=== PATIENT | female | born 1965 | race Caucasian/White ===

== ENCOUNTER → 2021-01-06 16:51 | Outpatient (CLI) | payer OTHER, SELFPAY ==
--- NOTE | 2021-01-06 16:56 | DI.MRI.S_ITS ---
PROCEDURE: MR KNEE RT WO CON INDICATIONS: Unilateral primary osteoarthritis, right knee TECHNIQUE: Noncontrast sagittal PD fast spin echo and T2 fast spin echo with fat saturation, sagittal 3-D FLASH with fat saturation; coronal T1 spin echo and PD fast spin echo with fat saturation, and axial PD fast spin echo with fat saturation through the knee. COMPARISON: [facility] Vernon Pooler, CR, XR KNEE 4+ VIEWS RIGHT, 12/20/2020, 9:18. FINDINGS: Image quality: Excellent. Menisci: Medial extrusion of the medial meniscus is present. Radial tearing of the posterior horn medial meniscus at the meniscal root ligament insertion site. There is linear horizontal and amorphous high signal intensity within the medial meniscal body and posterior horn, demonstrating superior and inferior articular surface extension, indicating complex tearing. Lateral meniscus is intact. Cruciate ligaments: The anterior and posterior cruciate ligaments appear intact. Medial structures: The medial collateral ligament appears intact. Visualized portions of the pes anserinus tendons appear normal. No abnormal bursal fluid. Lateral structures: The lateral collateral ligament demonstrates mild T2 signal elevation femoral origin. The long and short heads of the biceps femoris tendon appear intact. The popliteus tendon appears normal. Iliotibial band appears normal. Anterior structures: The quadriceps and patellar tendons appear intact. Mild T2 signal elevation within the quadriceps and patellar tendons at the patellar insertion site. Patellar alignment is normal. No femoral trochlear dysplasia or ventral trochlear prominence. No edema in the infrapatellar fat pad. Bones and cartilage: No bone marrow contusions or fractures. There is mild subchondral degenerative marrow edema within the anterior, mid, and posterior weight-bearing aspects of the medial femoral condyle. Mild ill-defined T2 signal elevation within the lateral patellar apex. Mild degenerative T2 signal elevation within the medial and lateral femoral trochlea. Moderate tricompartmental periarticular osteophyte formation. Severe articular cartilage loss diffusely overlies the weight-bearing aspects of the medial femoral condyle and medial tibial plateau. Mild articular cartilage loss overlies the weight-bearing aspects of the lateral femoral condyle and lateral tibial plateau. Moderate articular cartilage loss overlies the medial and lateral patellar facets. Joint space: There is a small knee joint effusion and a moderate Dumont's cyst. There are a few intra-articular loose bodies, largest of which is in the central anterior aspect of the knee joint measuring 10 mm, which demonstrates low T2 signal intensity, suggestive of a meniscal fragment. Normal appearing synovial plicae are incidentally noted. IMPRESSION: 1. Tricompartmental osteoarthritis with associated articular cartilage loss. 2. Complex tearing of the medial meniscus. 3. Knee joint effusion, Dumont's cyst, and intra-articular loose bodies. Possible meniscal fragment within the anterior aspect of the knee joint. 4. Quadriceps and patellar tendinopathy. 5. Low-grade partial thickness lateral collateral ligament tear. Dictated by: Selin Drake M.D. on 01/07/2021 at 8:36 Approved by: Selin Drake M.D. on 01/07/2021 at 8:39
== END ==
PROVIDERS: Referring Provider Orthopaedic Surgery; Visit Provider Orthopaedic Surgery
DX: M17.11 Unilateral primary osteoarthritis, right knee (principal); S83.231A Complex tear of medial meniscus, current injury, right knee, initial encounter; S83.421A Sprain of lateral collateral ligament of right knee, initial encounter; M25.461 Effusion, right knee; M71.21 Synovial cyst of popliteal space [Baker], right knee
CPT/HCPCS: 73721

== ENCOUNTER → 2021-02-03 13:08 | Outpatient (CLI) | payer OTHER, SELFPAY ==
[2021-02-03 15:07] LABS: COVID19 -Nasal RAPID Negative (Negative)
== END ==
PROVIDERS: PCP Orthopaedic Surgery; Visit Provider Student in an Organized Health Care Education/Training Program
DX: Z20.822 Contact with and (suspected) exposure to COVID-19 (principal)
CPT/HCPCS: 87635

== ENCOUNTER 2021-02-04 06:27 | Day surgery (SDC) | payer OTHER, SELFPAY ==
[2021-02-04] VITALS (16 sets, daily range): BP systolic 120–171; BP diastolic 59–95; PULSE 63–98; RESP 10–20; TEMP 35.7–37.1; O2SAT 95–100; BMI 36.9
[2021-02-04] MEDS: CELECOXIB 200 MG CAPSULE PO (07:00)
[2021-02-04] MEDS: ACETAMINOPHEN 325 MG TABLET 975 MG PO (07:00)
[2021-02-04] MEDS: VANCOMYCIN 1,000 MG/200 ML PIGGYBACK 200 MG IV (07:29)
[2021-02-04] MEDS: LACTATED RINGERS 1,000 ML 42 ML IV ×2 (07:31→09:26)
--- NOTE | 2021-02-04 07:42 | PM.PREOP ---
Pre-operative Note COVID-19 COVID-19 status: Negative Interval Note History & Physical reviewed/Exam performed by Physician: Yes Changes to H&P: No
--- NOTE | 2021-02-04 07:43 | PM.OP.1 ---
Operative Date/Time/Diagnoses Date of procedure: 02/04/21 Time of procedure: 07:43 Pre-op diagnosis: right knee oa Post-op diagnosis: same Procedure & Clinicians Procedure: Right total knee arthroplasty Same procedure as scheduled: Yes Indications: The patient has had progressively worsening right knee pain with radiographic changes consistent with arthritis. Non-operative management has failed and the patient has requested total knee replacement. The risks, benefits and alternatives to surgery were discussed with the patient prior to proceeding. Risks discussed included, but were not limited to, failure to relieve pain, stiffness, infection, nerve damage, deep venous thrombosis, pulmonary embolism, stroke, coma, heart attack, permanent paralysis and , as well as the potential need for eventual revision of the prosthetic. Surgeon: Sunshine Dykes Maintainer Operator: Donnell Corado Anesthesia Type: General and Spinal Operative Notes Findings: Severe right knee osteoarthritis, good stability Closure Type: primary Specimen(s): none sent Prosthetic devices, grafts, tissues, transplants, or devices: Dykes and Nephew Roshan BCS 2 size 8 femur, size 6 tibia, 38 mm patella, +9 poly Applied: drain(s) Estimated Blood Loss (mL): 250 Blood products transfused: none Tourniquet time (min): 83 Procedure in detail: The patient was seen in the pre-operative area, where the patient identified the right knee as the operative site and this was marked with my initials. The patient received pre-operative antibiotics, and was taken to the operating room and placed on the operative table in the supine position. After satisfactory anesthesia, a registered phlebotomist part time out was performed. The right leg was encircled with a tourniquet about the proximal thigh, and the leg was prepared from the toes to the tourniquet with ChloroPrep in the usual fashion and draped through sterile drapes. The leg was elevated and exsanguinated with Eschmark bandage and the tourniquet inflated to [250] mmHg pressure. The knee was approached through an approximately 18 cm incision centered over the patella and carried into the knee through a medial parapatellar arthrotomy. A portion of the medial and lateral meniscus was resected. Soft tissue was carefully mobilized around the patella the patella was measured with a caliper. Bone was resected from the patella and the patellar height was reconstituted with up an appropriate sized patellar component. A cover was then placed on the patella. A small amount of additional medial and lateral meniscus was resected. The visionare guide fit well to the distal femur. It looked like an appropriate distal femoral cut and the cut was made without difficulty. The rotation was assessed and the appropriate size femoral guide was placed on the distal femur and finishing cuts were made. There was no evidence of notching. The anterior, posterior and chamfer cuts were then made. The posterior osteophytes and soft tissues were then removed. The posterior capsule was injected with part of a mixture of 60 ml 0.25% Marcaine mixed with 20 ml Exparel for post operative pain control. The remainder of this mixture was injected into the capsule and subcutaneous tissues during cement curing. The tibia was prepared and the visionaire guide fit well to the distal tibia. The rotation was assessed. The patient was placed in extension residual medial and lateral meniscus as well as any residual bone was carefully resected. [No] additional tibia was resected. Hemostasis was achieved especially posteriorly. Additional local was injected into the posterior capsule. The extension gap was assessed and additional releases for gap balancing were performed as necessary. It was checked with the gap corn detasseler. The femoral component was trial was placed and the notch was finished. Trial tibial and femoral components were then placed and the knee placed through a range of motion. Range of motion was [0-130], with good stability throughout the range. The trials were then removed, and the tibia was finished. The bone was prepared with pulsatile lavage, and dried with a sponge. Cement was applied and the final prosthetics placed. Excess cement was removed during and after cement curing. A brief Betadine soak was performed. After confirming there was no extruded cement posteriorly, the final tibial insert was placed. The knee was copiously irrigated and the tourniquet deflated. Hemostasis was obtained with the [Aquamantys system]. A drain was placed and brought out superolaterally. The capsule was closed with interrupted # 1 black braided suture. The subcutaneous layer was closed with barbed sutures, and the skin with a running 3-0 V-Lock suture and Surgical glue. An Aquacel Ag dressing was applied and the patient was taken to recovery having tolerated the procedure well. Post-operative Condition: stable Disposition: Acute Care Plan for aftercare: The patient will be maintained on a standard total knee replacement protocol with weight bearing as tolerated. The patient will receive Aspirin and sequential compression devices for DVT prophylaxis. The patient will be discharged home when safe for the home environment.
[2021-02-04] MEDS: TRANEXAMIC ACID 1,000 MG VIAL 1000 MG INJ ×2 (08:15→09:49)
--- NOTE | 2021-02-04 08:30 | SUR.OPER ---
Supine on padded OR bed. Pillow under head, arms secured on padded armboards <90 degree abduction. Safety belt across torso. Non-operative leg secured with tape over blanket over lower leg. Operative leg secured in DeMayo/Ubaldo positioner. Foam padded brace at thigh of operative leg.
[2021-02-04] MEDS: CEFAZOLIN 1 GM VIAL 2 GM IV (08:35)
[2021-02-04] MEDS: BUPIVACAINE 0.25% W/ EPI 30 ML VIAL 60 ML INJ (08:36)
[2021-02-04] MEDS: BUPIVACAINE LIPOSOME 266 MG/20 ML VIAL INJ (08:36)
[2021-02-04] MEDS: SODIUM CHLORIDE IRRIG SOLUTION 250 ML, POVIDONE-IODINE SPONGE STICKS 1 APPLIC IRR (08:36)
--- NOTE | 2021-02-04 09:30 | PC.NURSE ---
Day shift: Pt not on AC unit at this time (0930).
[2021-02-04] MEDS: fentaNYL 100 MCG/2 ML INJ IV (10:55)
[2021-02-04] MEDS: HYDROMORPHONE 2 MG INJ IV (10:59)
--- NOTE | 2021-02-04 11:30 | DI.RAD.S_ITS ---
PROCEDURE: XR KNEE RT 1TO2V INDICATIONS: RIGHT TOTAL KNEE TECHNIQUE: 3 views of the knee were acquired. COMPARISON: None. FINDINGS: Bones: No fractures or dislocations. No suspicious bony lesions. Total knee prosthesis in place. Intra-articular drain noted. Soft tissues: No joint effusion. No suspicious soft tissue calcifications. IMPRESSION: Total right knee arthroplasty and intra-articular drain in good position. Dictated by: Jose Luis Young M.D. on 02/04/2021 at 12:59 Approved by: Jose Luis Young M.D. on 02/04/2021 at 13:00
--- NOTE | 2021-02-04 11:35 | PC.NURSE ---
Day shift: Pt on AC unit from PACU at approx 1135. Laying on her left side to relieve some of her chronic back pain. She is A&Ox4. SCD's in place. Reports pain in rt knee feels burning and is 6/10. RA 99%. CMS ok and PPP. LAURIE wrap is CDI. Matheus-vac patent and clamped. De-clamp at 1215 per CREDIT REVIEW ANALYST. Lung clear and HR regular. States that she is not hungry right now. BT's hypo. Agrees to not get OOB w/o help from staff. Reports having a BM 2 days ago and this is normal for her she said. Oreinted to room and call light. Call light in reach. Will continue w/ post=op plan of care.
[2021-02-04] MEDS: LACTATED RINGERS 1,000 ML 100 ML IV ×2 (11:56→22:08)
[2021-02-04] MEDS: IBUPROFEN 400 MG TABLET PO ×3 (12:04→20:37)
[2021-02-04] MEDS: HYDROMORPHONE 2 MG TABLET PO ×3 (12:04→17:27)
--- NOTE | 2021-02-04 12:48 | PC.NURSE ---
Day shift: Matheus-Vac unclamped at approx 1240 and serous drainage present in line and flowed into the receptacle.
[2021-02-04] MEDS: ACETAMINOPHEN 325 MG TABLET 650 MG PO ×2 (14:09→20:38)
--- NOTE | 2021-02-04 15:55 | PT.IIE ---
Current Diagnoses Unilateral primary osteoarthritis, right knee (02/04/21) Surgery Performed Operation Date: 02/04/21 07:45 Actual Procedures p Total Knee Arthroplasty(Right) - Sunshine Dykes MD Physical Therapy Inpatient Evaluation/Re-Eval M1 PT/OT-IP Prior Functional Status Start: 02/04/21 17:33 Freq: NEEDED Status: Active Protocol: Document 02/04/21 15:55 AB (Rec: 02/04/21 17:46 AB [id number]) Medical Review Prior Functional Status Medical History Reviewed Yes Communication able to make needs known Mobility and Gait pt stated that she is modified independent with all mobilities and ambulation mostly without AD but uses bilateral crutches on/off depending on steadiness. stated that her knees tend to give out on her Social History Household Members children Living Arrangements House Number of Floors (Floors) Two Floors Number of Stairs To Enter/Railing? 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 [employer] M2 PT-IP Current Condition Start: 02/04/21 17:33 Freq: NEEDED Status: Active Protocol: Document 02/04/21 15:55 AB (Rec: 02/04/21 17:46 AB [id number]) Physical Therapy Current Condition Current Condition Evaluation Date 02/04/21 Treatment Diagnosis s/p R TKA; difficulty in walking Onset Date 02/04/21 Weight Bearing Status Weight Bearing Status Weight Bear as Tolerated Allowed Weight Bearing Amount (enter % RLE WBAT or #) (%) M3 PT-IP Subjective Start: 02/04/21 17:33 Freq: NEEDED Status: Active Protocol: Document 02/04/21 15:55 AB (Rec: 02/04/21 17:46 AB [id number]) Subjective Physical Therapy Visit Type Type Initial Evaluation Visit Start Time 15:55 Visit Stop Time 16:30 Total Visit Minutes 35 Number of WORD PROCESSING SUPERVISOR Visits 0 Physical Therapy Visit Comments Patient Comments agreeable to do PT Therapy Pain Assessment Pain When Pain Assessed At Rest Pain Present Pain Present Pain Reported Location Right knee Intensity 7 Scale Used Numeric (0 - 10) Pain Management Techniques Apply Cold,Distraction, Elevation,Modification of Treatment,Re-positioning, Timing of Activity with Medications M4 PT-IP Mobility and Gait Start: 02/04/21 17:33 Freq: NEEDED Status: Active Protocol: Document 02/04/21 15:55 AB (Rec: 02/04/21 17:46 AB [id number]) PT-Bed Mobility Assessment Supine to Sit Supine to Sit Standby Assistance Sit to Supine Sit to Supine Standby Assistance PT-Transfer Assessment Sit to and From Stand Sit to and from Stand Contact Guard Assistance, Minimal Assistance,1 Person Assistance,Use of Upper Extremities Equipment Transfer Assistive Device Gait Belt,Axillary Crutches Orthotic/Prosthetic Devices or Brace: No Transfers Transfer Destination Bed,Chair Transfer Technique ambulated using crutches Transfer Ability Level of Assist Contact Guard Assistance,1 Person Assistance,Use of Upper Extremities Comments Mobility Comments completed supine to sit SBa. completed sit to stand from bed CGA and ambulated in room using crutches CGA 30 ft. pt sat on chair. adjusted hand laundry attendant on crutches. completed sit to stand from chair and required min A. pt required 2 attempts before being able to get up from chair. educated pt on techniques to get up using crutches. pt ambulated in room again ~ 20 ft. c/o increase pain on R knee and requeste to go back to bed. completed sit to supine SBA. positioned in bed. ice pack provided. call light and table placed within reach. Gait Assessment Gait Gait Assistance Required: Contact Guard Assist Distance (Feet) 30 Able to Maintain Weight Bearing Status Yes During Gait Assistive Devices Assistive Device Gait Belt,Axillary Crutches Orthotic/Prosthetic Devices or Brace: No Gait Deviations General Gait Pattern Antalgic,Decreased Stride Length,Decreased Feet Clearance Factors Limiting Gait Function Factors Limiting Gait Function Decreased Activity Tolerance, Decreased Strength,Limited Range of Motion,Pain,Poor Balance,Poor Safety Awareness Comments Gait Comments pls refer to mobility section for details PT-Balance Assessment Sitting Balance and Reactions Static Sitting Balance Ability Good Dynamic Sitting Balance Ability Good Standing Balance and Reactions Static Standing Balance Ability Fair Dynamic Standing Balance Ability Fair Device Used crutches M5 PT-IP Objective Assessments Start: 02/04/21 17:33 Freq: NEEDED Status: Active Protocol: Document 02/04/21 15:55 AB (Rec: 02/04/21 17:46 [id number]) Orientation Orientation/Cognition Level of Alertness Alert Orientation Name,Age,Birthday,Month,Date, Year,Day of Week,Place, Situation Language Function Ability No Deficits Noted Safety Awareness Understands Safety Issues Memory Description No Deficits Noted Gross Range of Motion Lower Extremity ROM Impairments R knee flexion: ~ 100 deg R knee extension: ~ 10 deg lacking to 0 Strength Lower Extremity Strength Assessment Right Impaired Hip 4+/5 Knee 3+/5 Coordination Assessment Gross Coordination Gross Coordination WNL Sensation Assessment Sensation Gross Sensation WNL Muscle Tone Muscle Tone WNL Yes M6 PT-IP Treatment Start: 02/04/21 17:33 Freq: NEEDED Status: Active Protocol: Document 02/04/21 15:55 AB (Rec: 02/04/21 17:46 [id number]) Physical Therapy Treatment Education Education Provided Precautions,Weight Bearing Status,Post-Op Packet,Safety M7 PT-IP Assessment and Plan Start: 02/04/21 17:33 Freq: NEEDED Status: Active Protocol: Document 02/04/21 15:55 AB (Rec: 02/04/21 17:46 [id number]) PT Summary Assessment and Plan Potential Rehabilitation Potential Good Status of Condition at Evaluation Stable Summary Impairments Pain,ROM,Strength,Balance,Bed Mobility,Transfers,Gait, Activity Tolerance Assessment Summary pt requiring CGA to min A with mobility using bilateral axillary crutches and plans to go home with family to assist her. will conduct caregiver training when appropriate as well as stair climbing training. pt s/o R TKA and POD 0 and will continue to assess progress and determine safe d/c plan. Goals Bed Mobility Goal Independent Transfer Goal Independent,Crutches Gait Goal Independent,Crutches Gait Distance 200 Other Goals up/down 3 steps using crutches SBA Days to Meet Goals 5 Frequency of Treatment Frequency Of Treatment Twice a Day Treatment Plan Physical Therapy Treatment Plan Bed Mobility Training,Transfer Training,Gait Training, Therapeutic Exercise,Balance Retraining,Post Op Education, Discharge Planning,Hot or Cold Pack,Neuromuscular Re-ed, Coordination Retraining,Manual Therapy Precautions Other Precautions RLE WBAT Recommendations To Nursing Amount of Assist Needed 1 Person Assist Discharge Recommendations PT Discharge Recommendations Home with Assistance, Outpatient PT Transportation Needs at Discharge Private Vehicle
[2021-02-04] MEDS: CEFAZOLIN VIAL 3 GM in SODIUM CHLORIDE 0.9% 100 ML 200 ML IV (17:03)
[2021-02-04] MEDS: HYDROMORPHONE 4 MG TABLET PO (20:38)
[2021-02-04] MEDS: DOCUSATE 100 MG CAPSULE PO (20:39)
[2021-02-04] MEDS: ASPIRIN EC 81 MG TABLET PO (20:39)
[2021-02-05] VITALS: BP 124/70; PULSE 64; RESP 16; TEMP 36; O2SAT 96
[2021-02-05] MEDS: CEFAZOLIN VIAL 3 GM in SODIUM CHLORIDE 0.9% 100 ML 200 ML IV (01:02)
[2021-02-05] MEDS: IBUPROFEN 400 MG TABLET PO ×3 (01:02→09:20)
[2021-02-05 05:15] VITALS: BP 140/78; PULSE 68; RESP 16; TEMP 36.5; O2SAT 97
[2021-02-05 06:00] LABS: Hematocrit 36.2 % (36-46); Hemoglobin 11.7 g/dL (12.0-16.0)
[2021-02-05] MEDS: LEVOTHYROXINE 100 MCG TABLET PO (06:07)
[2021-02-05] MEDS: LEVOTHYROXINE 75 MCG TABLET PO (06:07)
[2021-02-05] MEDS: HYDROMORPHONE 2 MG TABLET PO (06:25)
[2021-02-05 07:34] VITALS: BP 139/67; PULSE 68; RESP 15; TEMP 36.1; O2SAT 99
--- NOTE | 2021-02-05 09:17 | PT.IPTN ---
Current Diagnoses Unilateral primary osteoarthritis, right knee (02/04/21) Surgery Performed Operation Date: 02/04/21 07:45 Actual Procedures p Total Knee Arthroplasty(Right) - Sunshine Dykes MD Physical Therapy Treatment Note M2 PT-IP Current Condition Start: 02/04/21 17:33 Freq: NEEDED Status: Discharge Protocol: Document 02/04/21 15:55 AB (Rec: 02/04/21 17:46 AB [id number]) Physical Therapy Current Condition Current Condition Evaluation Date 02/04/21 Treatment Diagnosis s/p R TKA; difficulty in walking Onset Date 02/04/21 Weight Bearing Status Weight Bearing Status Weight Bear as Tolerated Allowed Weight Bearing Amount (enter % RLE WBAT or #) (%) M3 PT-IP Subjective Start: 02/04/21 17:33 Freq: NEEDED Status: Discharge Protocol: Document 02/05/21 09:06 SP (Rec: 02/05/21 13:37 SP [id number]) Subjective Physical Therapy Visit Type Type Treatment Note Visit Start Time 09:06 Visit Stop Time 09:17 Total Visit Minutes 11 Notes Daughter in room, assisted with sBA-CGA as needed during mobility throughout tx. Number of MEDICAL ASSISTANT DERMATOLOGY Visits 1 Physical Therapy Visit Comments Patient Comments agreeable to do PT Therapy Pain Assessment Pain When Pain Assessed At Rest Pain Present Pain Present Pain Reported Location Right knee Intensity 5 Scale Used Numeric (0 - 10) Description With Movement Pain Management Techniques Distraction,Re-positioning, Timing of Activity with Medications M4 PT-IP Mobility and Gait Start: 02/04/21 17:33 Freq: NEEDED Status: Discharge Protocol: Document 02/05/21 09:06 SP (Rec: 02/05/21 13:37 SP [id number]) PT-Bed Mobility Assessment Supine to Sit Supine to Sit Independent Sit to Supine Sit to Supine Independent PT-Transfer Assessment Sit to and From Stand Sit to and from Stand Contact Guard Assistance, Minimal Assistance,1 Person Assistance,Use of Upper Extremities Equipment Transfer Assistive Device Gait Belt,Axillary Crutches Orthotic/Prosthetic Devices or Brace: No Transfers Transfer Destination Bed Transfer Technique ambulated using crutches Transfer Ability Level of Assist Standby Assistance,Use of Upper Extremities Comments Mobility Comments Completed supine<> sitting I, sit<>stand SBA, ambulated further distance use of axillary crutches to stairs and back sBA with occasional cuing for R knee extension and heel toe gait phase. Pt ascended/ descended 3 stairs using L HR and crutches in RUE step to patterning CGA. When returned to room layed back in bed, instructed LE post op ex and importance of ROM including circulation safety. Pt had call light and all needs in reach. Notified nurse ok to return home with children to assist her when medically cleared. Pt is already set up for outpt therapy. Gait Assessment Gait Gait Assistance Required: Contact Guard Assist Distance (Feet) 250 Able to Maintain Weight Bearing Status Yes During Gait Assistive Devices Assistive Device Gait Belt,Axillary Crutches Orthotic/Prosthetic Devices or Brace: No Gait Deviations General Gait Pattern Antalgic,Decreased Stride Length,Decreased Feet Clearance Factors Limiting Gait Function Factors Limiting Gait Function Decreased Activity Tolerance, Decreased Strength,Limited Range of Motion,Pain Comments Gait Comments See mobility comments. Stair Climbing Assessment Evaluation Level of Assist On Stairs Contact Guard Assistance Devices Stair Climbing Assistive Devices Axillary Crutches,Left Railing Technique/Endurance Stair Climbing Direction Ascend and Descend Stair Climbing Technique Step to Step Number of Steps Climbed 3 Stair Climbing Set # Repetitions (reps) 1 Comments Stair Climbing Comments see mobility comments PT-Balance Assessment Sitting Balance and Reactions Static Sitting Balance Ability Normal Dynamic Sitting Balance Ability Normal Standing Balance and Reactions Static Standing Balance Ability Good Dynamic Standing Balance Ability Good Device Used crutches M5 PT-IP Objective Assessments Start: 02/04/21 17:33 Freq: NEEDED Status: Discharge Protocol: Document 02/04/21 15:55 AB (Rec: 02/04/21 17:46 AB [id number]) Orientation Orientation/Cognition Level of Alertness Alert Orientation Name,Age,Birthday,Month,Date, Year,Day of Week,Place, Situation Language Function Ability No Deficits Noted Safety Awareness Understands Safety Issues Memory Description No Deficits Noted Gross Range of Motion Lower Extremity ROM Impairments R knee flexion: ~ 100 deg R knee extension: ~ 10 deg lacking to 0 Strength Lower Extremity Strength Assessment Right Impaired Hip 4+/5 Knee 3+/5 Coordination Assessment Gross Coordination Gross Coordination WNL Sensation Assessment Sensation Gross Sensation WNL Muscle Tone Muscle Tone WNL Yes M6 PT-IP Treatment Start: 02/04/21 17:33 Freq: NEEDED Status: Discharge Protocol: Document 02/05/21 09:06 SP (Rec: 02/05/21 13:37 SP [id number]) Physical Therapy Treatment Exercises Exercises Ankle Pumps,Quad Sets,Heel Slides,Straight Leg Raises, Seated Knee Flexion/Extension Knee ROM Measurement 70 deg long sitting in bed Education Education Provided Precautions,Weight Bearing Status,Post-Op Packet,Safety M7 PT-IP Assessment and Plan Start: 02/04/21 17:33 Freq: NEEDED Status: Discharge Protocol: Document 02/05/21 09:06 SP (Rec: 02/05/21 13:37 SP [id number]) PT Summary Assessment and Plan Potential Rehabilitation Potential Good Status of Condition at Evaluation Stable Summary Impairments Pain,ROM,Strength,Balance,Bed Mobility,Transfers,Gait, Activity Tolerance Progress Towards Goals Progressing Toward Goals,Slow Progress due to Pain,Slow Progress due to Activity Tolerance Assessment Summary Pt required sBA during mobility using axillary crutches, CGA during stair mgt . Daughter completed caregiver training and pt is ok to return home with family to assist her as needed when medically cleared. She is already set up for outpt therapy. Goals Bed Mobility Goal Independent Transfer Goal Independent,Crutches Gait Goal Independent,Crutches Gait Distance 200 Other Goals up/down 3 steps using crutches SBA Days to Meet Goals 5 Frequency of Treatment Frequency Of Treatment Twice a Day Treatment Plan Physical Therapy Treatment Plan Bed Mobility Training,Transfer Training,Gait Training, Therapeutic Exercise,Balance Retraining,Post Op Education, Discharge Planning,Hot or Cold Pack,Neuromuscular Re-ed, Coordination Retraining,Manual Therapy Other Recommendations and Next Treatment LE exercises, gait distance Focus Precautions Other Precautions RLE WBAT Recommendations To Nursing Amount of Assist Needed Standby Assistance Discharge Recommendations PT Discharge Recommendations Home with Assistance, Outpatient PT Transportation Needs at Discharge Private Vehicle
[2021-02-05] MEDS: GABAPENTIN 400 MG CAPSULE 1600 MG PO (09:19)
[2021-02-05] MEDS: DOCUSATE 100 MG CAPSULE PO (09:19)
[2021-02-05] MEDS: ACETAMINOPHEN 325 MG TABLET 650 MG PO (09:19)
[2021-02-05] MEDS: VENLAFAXINE ER 75 MG CAP PO (09:20)
[2021-02-05] MEDS: SODIUM CHLORIDE 0.9% FLUSH 10 ML IV (09:20)
[2021-02-05] MEDS: ASPIRIN EC 81 MG TABLET PO (09:20)
[2021-02-05] MEDS: HYDROMORPHONE 4 MG TABLET PO (09:20)
[2021-02-05 09:32] VITALS: O2SAT 99
--- NOTE | 2021-02-05 10:33 | PC.NURSE ---
Pt is dressed and ready for discharge home with her daughter. Removed IV and Hemovac. Hemovac with bloody drainage. Filled ice packs for Pt. When I came back into the room with the ice packs-Pt reported that she was feeling dizzy. Lowered Pt head in bed and encouraged smooth even breathing and Pt resting. Dizziness resolved. Pt states she is feeling good about going home and will relax and take it easy. Daughter will be staying with her. Went over d/c instructions with Pt-Discussed d/c meds, time of last dose, reviewed stroke education, encouraged elevation and ice (20 minutes on/off), encouraged increased fluid intake to prevent constipation or dehydration. Follow up appointment is already made. Pt and daughter deny further questions and will be taken out via w/c by FURNIT[employer] SERVICER to POV with daughter and all belongings.
--- NOTE | 2021-02-05 11:36 | CM.DANOTE ---
Patient is a 55 year old female who [place] [facility] [place] Pt has [employer] for insurance and her PCP is Dr. Juvenal Harris. EMR was reviewed. Per Sg JORGE, pt tolerated procedure well and stable for d/c home today after final PT. Per PT, recommending safe d/c home with family assist and outpt PT and completed CG training with pt's older teenage Dtr bedside this morning. SW met bedside with pt, teen Dtr, and RN and explained role and pt confirms that she lives at home in [place] with her spouse and has 7 children, some grown and out of the house. Pt's spouse and teenagers can provide transport at d/c and assist. Pt denies any hx of HH or SNF and has outpt PT set up in [place] and has no concerns with discharge home today. RN completed discharge instructions. Plan: Patient to d/c home today via Dtr POV and family assist and outpt PT already set up. No SW needs at this time. ELIEL Busby
== END 2021-02-05 10:59 | disposition home or self-care (01) ==
LOC: OR 06:29 → AC 06:30
PROVIDERS: PCP Orthopaedic Surgery; Referring Provider Orthopaedic Surgery; Visit Provider Orthopaedic Surgery
PROC: 0SRC0JZ Replacement of Right Knee Joint with Synthetic Substitute, Open Approach (ICD-10-PCS; CPT 27447; principal; 2021-02-04 07:45)
DX: M17.11 Unilateral primary osteoarthritis, right knee (principal); E66.9 Obesity, unspecified; F32.9 Major depressive disorder, single episode, unspecified; E03.9 Hypothyroidism, unspecified; Z68.38 Body mass index [BMI] 38.0-38.9, adult
CPT/HCPCS: 27447; 36415; 73560; 85014; 85018; 94760; 97116; 97161; C1776; C9290; J0690; J1100; J1170; J2250; J2405; J2704; J3010

== ENCOUNTER → 2021-11-24 08:47 | Outpatient (CLI) | payer OTHER, SELFPAY ==
[2021-02-04 12:05] VITALS: BMI 36.9
--- NOTE | 2021-11-24 08:50 | DI.NM.S_ITS ---
PROCEDURE: NM BONE SCAN WHOLE BODY RADIOPHARMACEUTICAL: 22 mCi Tc-99m MDP IV. INDICATIONS: Effusion, right knee TECHNIQUE: Delayed whole-body scintigrams were obtained approximately 3-4 hours after intravenous injection of radiotracer. Anterior and posterior views were acquired from vertex to feet. Additional left and right oblique views of the knees were obtained. COMPARISON: [facility], [place], XR KNEE 4+ VIEWS RIGHT, 10/16/2021, 16:27. FINDINGS: There is photopenia within the right knee consistent with a right knee prosthesis. There is increased periprosthetic uptake in the distal femur and proximal tibia as well as in the patella. Findings are suspicious for loosening or infection. Elsewhere, there is mild heterogeneous uptake along the left knee consistent with degenerative changes. IMPRESSION: 1. Periprosthetic uptake along the right knee prosthesis suggestive of loosening or infection. Dictated by: Curtis Nielsen M.D. on 11/24/2021 at 16:47 Approved by: Curtis Nielsen M.D. on 11/24/2021 at 16:56
== END ==
PROVIDERS: PCP Orthopaedic Surgery; Referring Provider Orthopaedic Surgery; Visit Provider Orthopaedic Surgery
DX: M25.461 Effusion, right knee (principal); Z96.651 Presence of right artificial knee joint
CPT/HCPCS: 78306; A9503

== ENCOUNTER → 2022-05-04 11:37 | Outpatient (CLI) | payer OTHER, SELFPAY ==
[2021-02-04 12:05] VITALS: BMI 36.9
[2022-05-04 13:44] LABS: COVID19 -Nasal RAPID Negative (Negative)
== END ==
PROVIDERS: PCP Orthopaedic Surgery; Referring Provider Orthopaedic Surgery; Visit Provider Orthopaedic Surgery
DX: Z20.822 Contact with and (suspected) exposure to COVID-19 (principal)
CPT/HCPCS: 87635; C9803

== ENCOUNTER 2022-05-05 06:03 | Inpatient (IN) | payer OTHER, SELFPAY ==
[2021-02-04 12:05] VITALS: BMI 36.9
[2022-03-18 12:30] VITALS: BMI 33.0
[2022-05-05] VITALS (13 sets, daily range): BP systolic 105–156; BP diastolic 65–93; PULSE 71–99; RESP 12–20; TEMP 35.9–37.1; O2SAT 93–98; BMI 33.0
[2022-05-05] MEDS: CELECOXIB 200 MG CAPSULE PO (06:59)
[2022-05-05] MEDS: ACETAMINOPHEN 325 MG TABLET 975 MG PO ×2 (06:59→10:57)
[2022-05-05] MEDS: VANCOMYCIN 1,000 MG/200 ML PIGGYBACK 200 MG IV (07:01)
--- NOTE | 2022-05-05 07:44 | PM.PREOP ---
Pre-operative Note COVID-19 COVID-19 status: Negative Interval Note History & Physical reviewed/Exam performed by Physician: Yes Changes to H&P: No H&P completed within 30 days and has changed as indicated here:: Her chief complaint is ongoing recurrent effusions and some instability. The vast majority of her pain is laterally. She has not had fevers or chills. She has otherwise been healthy. She is having pain on a daily basis and swelling which is worse with activities. She has clear failed extensive conservative treatment. The limits of the procedure and possibility of ongoing problems with instability and or failure of revision requiring repeat revision were discussed in detail. Possibility that this also represents a low-grade infection which we have been unable to prove previously and she may ultimately require more extensive surgery including 2 staged revision was also discussed in detail. She is significantly limited and we have done extensive conservative treatment and workup and at this point revision knee arthroplasty is indicated. There is no obvious loosening of her femoral component no obvious patellar loosening and just a minimal radiolucency along the medial tibia. We will get deep surgical tissues for cultures and PCR, assess her stability and the stability of the components.
--- NOTE | 2022-05-05 07:48 | PM.OP.1 ---
Operative Date/Time/Diagnoses Date of procedure: 05/05/22 Time of procedure: 07:48 Pre-op diagnosis: History of right total knee arthroplasty with recurrent effusions and instability Post-op diagnosis: same Procedure & Clinicians Procedure: Revision right total knee arthroplasty with revision of polyethylene component Same procedure as scheduled: Yes Indications: The patient has had progressively worsening right knee pain with persistent pain and instability after a right total knee arthroplasty. Non-operative management has failed and the patient has requested revision total knee replacement. The risks, benefits and alternatives to surgery were discussed with the patient prior to proceeding. Risks discussed included, but were not limited to, failure to relieve pain, stiffness, infection, nerve damage, deep venous thrombosis, pulmonary embolism, stroke, coma, heart attack, permanent paralysis and , as well as the potential need for eventual rerevision of the prosthetic. We also discussed that this may represent an undergraduate going low-grade infection which we have not been able to demonstrate. This would subsequently require additional rerevision surgeries. Surgeon: Sunshine Dykes Bilingual Customer Service Specialist: Nancy Brody Anesthesia Type: General and Spinal Operative Notes Findings: Ykop-pz-lkoqacdy synovitis, some laxity the laxity throughout range of motion, improved with a change to a 10 poly, some evidence of osteolysis on the medial aspect of the tibia, no evidence of gross tibia, femoral or patella loosening Closure Type: primary Specimen(s): other (Multiple cultures, PCR) Prosthetic devices, grafts, tissues, transplants, or devices: Size 10 Journey BCS 2 size 6 polyethylene Estimated Blood Loss (mL): 100 Blood products transfused: none Tourniquet time (min): 70 Procedure in detail: The patient was seen in the pre-operative area, where the patient identified the right knee as the operative site and this was marked with my initials. The patient received pre-operative antibiotics, and was taken to the operating room and placed on the operative table in the supine position. After satisfactory anesthesia, a multimedia services manager out was performed. The right leg was encircled with a tourniquet about the proximal thigh, and the leg was prepared from the toes to the tourniquet with ChloroPrep in the usual fashion and draped through sterile drapes. The leg was elevated and exsanguinated with Eschmark bandage and the tourniquet inflated to [250] mmHg pressure. The knee was approached through an approximately 18 cm incision centered over the patella and carried into the knee through a medial parapatellar arthrotomy. Soft tissue was carefully mobilized around the tibia and a portion of the femur. The components were checked in the interface was checked. There is no evidence of femoral loosening. There was jhym-fe-fklkievs synovitis in the knee. A piece of synovium was resected and sent for PCR and culture and sensitivity. The knee was meticulously mobilized. I stripped a portion of the soft tissue on the proximal tibia to better allow assessment and evaluation of the proximal tibial bone interface. There was evidence of a slight lytic lesion along the proximal tibia in the medial aspect the bone cement could be visualized and there was slight softening about a 1 mm of proximal tibia in the most medial aspect. I used a bone curette and meticulously resected tissue from that area and sent that tissue for culture and sensitivity as well as PCR. Gently removed a minimal amount of of soft tissue at the bone proximal tibial medial aspect removing anything that appeared abnormal. Checked the range of motion for the knee looked both at flexion and extension knee was reasonably well balanced both in flexion and extension it was in general loosen comparison to some knees and there was some generalized laxity. Appeared to be adequately balanced. Did feel like we could probably go up to a size 10 polyethylene. There was good tracking of the patella. The soft tissue was carefully mobilized and then the polyethylene insert was removed. I then meticulously checked around the tibial component as well as the posterior capsule. In the anterolateral aspect there did appear to be some soft tissue impinging in the component region. Used a rongeur to perform a partial synovectomy. Specifically removed any tissue which looked like it was significantly inflamed or irritated. We sent a total of 3 cultures 1 from the fluid, 1 from the synovium and 1 from the tibia. There was no obvious loosening around the femoral component or the patella component. The knee was meticulously scrubbed with throat is on and a scrub brush and extensive pulse lavage. There was no tissue that looked fundamentally infected. Hemostasis was achieved. Size 10 polyethylene trial showed good range of motion and better stability with less mid flexion instability. It was carefully inserted. Antibiotic cement had been opened and as there was a small cap on proximal medial tibia it was mixed with additional vancomycin and injected into the area in addition to placing vancomycin. Additional local was injected throughout the knee for postoperative pain control. (0.25% Marcaine mixed with 20 ml Exparel for post operative pain control). Range of motion was [0-130], with good stability throughout the range. The knee was copiously irrigated with Protosan and the tourniquet deflated. Hemostasis was obtained with the [Aquamantys system]. The capsule was closed with interrupted nonabsorbable suture. The subcutaneous layer was closed with barbed sutures, and the skin with a running 3-0 V-Lock suture and Surgical glue. An Aquacel Ag dressing was applied and the patient was taken to recovery having tolerated the procedure well. Complications: none Post-operative Condition: stable Disposition: Acute Care Plan for aftercare: Out of bed ambulating. Continue IV antibiotics until tomorrow. Follow-up long-term on cultures and PCR. Weightbearing as tolerated.
[2022-05-05] MEDS: TRANEXAMIC ACID 1,000 MG VIAL 2000 MG INJ ×2 (08:45→10:11)
[2022-05-05] MEDS: CEFAZOLIN 2 GM/100 ML PREMIX 100 ML IV ×2 (08:45→17:03)
[2022-05-05] MEDS: VANCOMYCIN 1,000 MG VIAL 2000 MG TOP (09:45)
[2022-05-05] MEDS: LACTATED RINGERS 1,000 ML 42 ML IV (09:57)
[2022-05-05] MEDS: BUPIVACAINE 0.25% (PF) 60 ML, EPINEPHrine 0.3 MG INJ (09:59)
[2022-05-05] MEDS: BUPIVACAINE LIPOSOME 266 MG/20 ML VIAL INJ (10:05)
--- NOTE | 2022-05-05 10:06 | SUR.OPER ---
Supine on padded OR bed. Pillow under head, arms secured on padded armboards <90 degree abduction. Safety belt across torso. Non-operative leg secured with tape over blanket over lower leg. Operative leg secured in DeMayo/Ubaldo/Nathe positioner. Foam padded brace at thigh of operative leg.
[2022-05-05 10:27] LABS: Body Fluid Appearance CLOUDY; Body Fluid Clotted? NO CLOTS PRESENT; Body Fluid Color PINK; Body Fluid Red Blood Cells 7466 /uL; Body Fluid Tot Nucleated Cells 1630 /uL
[2022-05-05] MEDS: ONDANSETRON 4 MG/2 ML INJ IV (10:58)
[2022-05-05 11:00] LABS: Eosinophils Body Fluid 0 %; Mononuclear WBC Body Fluid 79 %; Other Cells Body Fluid 0 %; Polynuclear WBC Body Fluid 21 %
--- NOTE | 2022-05-05 11:00 | SUR.PHASEI ---
report called to Cyril ARREAGA and opportunity for questions given. Pt being transferred to room 221 and is agreeable.
[2022-05-05] MEDS: LACTATED RINGERS 1,000 ML 100 ML IV ×2 (11:29→22:15)
[2022-05-05] MEDS: ONDANSETRON 4 MG ODT PO (11:56)
[2022-05-05] MEDS: IBUPROFEN 400 MG TABLET PO ×3 (12:29→20:38)
[2022-05-05] MEDS: diphenhydrAMINE 50 MG/ML VIAL 25 MG IV (12:29)
--- NOTE | 2022-05-05 13:56 | DI.RAD.S_ITS ---
PROCEDURE: XR KNEE RT 1TO2V INDICATIONS: TKA revision TECHNIQUE: Two view(s) of the knee acquired. COMPARISON: [facility], , XR KNEE RT 1TO2V, 02/04/2021, 11:20. FINDINGS: Bones: Patient is status post knee joint arthroplasty. Hardware components are in expected positions. Visualized bony structures are intact. Soft tissues: Overlying postoperative changes are noted. Intra-articular gas and fluid. IMPRESSION: Expected appearance post right knee arthroplasty revision. Dictated by: Rebeca Ambrosio M.D. on 05/05/2022 at 13:29 Approved by: Rebeca Ambrosio M.D. on 05/05/2022 at 13:30
[2022-05-05] MEDS: diphenhydrAMINE 25 MG TABLET PO ×2 (14:02→17:02)
[2022-05-05] MEDS: VENLAFAXINE 37.5 MG TABLET 75 MG PO (14:05)
--- NOTE | 2022-05-05 14:25 | PT.IIE ---
Current Diagnoses Effusion, right knee (05/05/22) Presence of right artificial knee joint (05/05/22) Surgery Performed Operation Date: 05/05/22 07:45 Actual Procedures p Total Knee Arthroplasty Revision(Right) - Sunshine Dykes MD Surgical History (Last Updated 03/18/22 @ 13:09 by Renetta Drew, RN) History of arthroplasty of right knee (02/04/21) History of History of hysterectomy Hx of bariatric surgery (09/2020) Hx of bilateral breast reduction surgery Medical History (Last Updated 03/18/22 @ 13:38 by Renetta Drew RN) Anesthesia COVID-19 virus infection (03/06/22) Depression Nerve damage Thyroid disease Physical Therapy Inpatient Evaluation/Re-Eval M1 PT/OT-IP Prior Functional Status Start: 05/05/22 14:59 Freq: NEEDED Status: Active Protocol: Document 05/05/22 14:25 AB (Rec: 05/05/22 15:44 AB [email or web address]) Medical Review Prior Functional Status Medical History Reviewed Yes Communication able to make needs known Mobility and Gait pt stated that she is modified independent with all mobilities and ambulation without AD Social History Household Members children Living Arrangements House Number of Floors (Floors) Two Floors Number of Stairs To Enter/Railing? 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) pt had used crutches before surgery M2 PT-IP Current Condition Start: 05/05/22 14:59 Freq: NEEDED Status: Active Protocol: Document 05/05/22 14:25 AB (Rec: 05/05/22 15:44 AB [id number]) Physical Therapy Current Condition Current Condition Evaluation Date 05/05/22 Treatment Diagnosis s/p R TKA revision; difficulty in walking Onset Date 05/05/22 M3 PT-IP Subjective Start: 05/05/22 14:59 Freq: NEEDED Status: Active Protocol: Document 05/05/22 14:25 AB (Rec: 05/05/22 15:44 AB [email or web address]) Subjective Physical Therapy Visit Type Type Initial Evaluation Visit Start Time 14:25 Visit Stop Time 14:55 Total Visit Minutes 30 Number of MINE ENGINEER Visits 0 Physical Therapy Visit Comments Patient Comments agreeable to do PT M4 PT-IP Mobility and Gait Start: 05/05/22 14:59 Freq: NEEDED Status: Active Protocol: Document 05/05/22 14:25 AB (Rec: 05/05/22 15:44 [email or web address]) PT-Bed Mobility Assessment Supine to Sit Supine to Sit Standby Assistance Sit to Supine Sit to Supine Standby Assistance PT-Transfer Assessment Sit to and From Stand Sit to and from Stand Minimal Assistance,1 Person Assistance,Use of Upper Extremities Equipment Transfer Assistive Device Gait Belt,Front Wheeled Walker Orthotic/Prosthetic Devices or Brace: No Transfers Transfer Destination Toilet Transfer Technique ambulated Transfer Ability Level of Assist Minimal Assistance,1 Person Assistance,Use of Upper Extremities Comments Mobility Comments BP : 134/75 . completed supine to sit SBA. able to sit on EOB SBA. completed sit to stand min A and cues and ambulated in room using FWW 20 ft. requested to use the toilet and ambulated to the toilet min A and cues using fWW. cued to slow down, increase ZIYAD and for steadiness. completed sit to stand using grab bar min A and ambulated back to the bed using FWW min A. c/o dizziness. BP checked: 138/78. completed sit to supine SBA. positioned pt in bed. call light and table placed within reach. Caregiver training set up for tomorrow at 9 am. Gait Assessment Gait Gait Assistance Required: Minimum Assistance,1 Person Assist Distance (Feet) 20 Able to Maintain Weight Bearing Status Yes During Gait Assistive Devices Assistive Device Gait Belt,Front Wheeled Walker Orthotic/Prosthetic Devices or Brace: No Gait Deviations General Gait Pattern Antalgic,Decreased Stride Length,Narrow Based Gait,Step- to Gait Factors Limiting Gait Function Factors Limiting Gait Function Decreased Activity Tolerance, Decreased Strength,Difficulty Following Directions,Limited Range of Motion,Pain,Poor Balance,Poor Safety Awareness PT-Balance Assessment Sitting Balance and Reactions Static Sitting Balance Ability Good Dynamic Sitting Balance Ability Good Standing Balance and Reactions Static Standing Balance Ability Fair Dynamic Standing Balance Ability Fair Device Used FWW M5 PT-IP Objective Assessments Start: 08/16/22 14:59 Freq: NEEDED Status: Active Protocol: Document 05/05/22 14:25 AB (Rec: 05/05/22 15:44 AB [email or web address]) Orientation Orientation/Cognition Level of Alertness Alert Orientation Name,Place,Situation Safety Awareness Decreased Safety Awareness Memory Description No Deficits Noted Gross Range of Motion Lower Extremity ROM Impairments R knee flexion: 70 deg R knee extension: ~ 15 deg less to 0 Strength Lower Extremity Strength Assessment Right Impaired Hip 4-/5 Knee 4-/5 Coordination Assessment Gross Coordination Gross Coordination WNL Sensation Assessment Sensation Gross Sensation Right LE Impaired Sensation Description Numbness Comments Sensation Comments slight numbness on RLE Muscle Tone Muscle Tone WNL Yes M6 PT-IP Treatment Start: 05/05/22 14:59 Freq: NEEDED Status: Active Protocol: Document 05/05/22 14:25 AB (Rec: 05/05/22 15:44 AB [id number]) Physical Therapy Treatment Education Education Provided Precautions,Weight Bearing Status,Post-Op Packet,Safety M7 PT-IP Assessment and Plan Start: 05/05/22 14:59 Freq: NEEDED Status: Active Protocol: Document 05/05/22 14:25 AB (Rec: 05/05/22 15:44 AB [id number]) PT Summary Assessment and Plan Potential Rehabilitation Potential Good Status of Condition at Evaluation Stable Summary Impairments Pain,ROM,Strength,Balance, Coordination,Sensation,Tone, Cognition,Bed Mobility, Transfers,Gait,Activity Tolerance Assessment Summary pt s/p R TKA revison and just had surgery this morning. pt requiring min A with mobility using fWW. Caregiver training set up for tomorrow at 9 am. will continue to assess progress. Goals Bed Mobility Goal Independent Transfer Goal Independent,Front Wheeled Walker Gait Goal Independent,Front Wheel Walker Gait Distance 200 Other Goals up/down 3 steps using crutches SBA Days to Meet Goals 5 Frequency of Treatment Frequency Of Treatment Twice a Day Treatment Plan Physical Therapy Treatment Plan Bed Mobility Training,Transfer Training,Gait Training, Therapeutic Exercise,Balance Retraining,Post Op Education, Discharge Planning,Hot or Cold Pack,Neuromuscular Re-ed, Coordination Retraining,Manual Therapy Other Recommendations and Next Treatment Caregiver trainin05/06/22 @ [facility] 9 am Weight Bearing Status Weight Bearing Status Weight Bear as Tolerated Allowed Weight Bearing Amount (enter % RLE WBAT or #) (%) Recommendations To Nursing Amount of Assist Needed 1 Person Assist Discharge Recommendations PT Discharge Recommendations Home with Assistance, Outpatient PT Transportation Needs at Discharge Private Vehicle
[2022-05-05] MEDS: HYDROMORPHONE 2 MG TABLET PO ×3 (14:40→20:37)
[2022-05-05] MEDS: ACETAMINOPHEN 325 MG TABLET 650 MG PO (17:01)
[2022-05-05] MEDS: ASPIRIN EC 81 MG TABLET PO (20:37)
[2022-05-05] MEDS: DOCUSATE 100 MG CAPSULE PO (20:38)
[2022-05-06] MEDS: IBUPROFEN 400 MG TABLET PO ×3 (00:58→08:23)
[2022-05-06] MEDS: CEFAZOLIN 2 GM/100 ML PREMIX 100 ML IV (00:59)
[2022-05-06 01:00] VITALS: BP 148/98; PULSE 70; RESP 14; TEMP 36.8; O2SAT 97
[2022-05-06 05:00] VITALS: BP 133/78; PULSE 65; RESP 14; TEMP 36.5; O2SAT 98
[2022-05-06 05:38] LABS: Hematocrit 36.1 % (36-46); Hemoglobin 11.9 g/dL (12.0-16.0)
[2022-05-06] MEDS: ACETAMINOPHEN 325 MG TABLET 650 MG PO ×2 (05:39)
[2022-05-06 08:00] VITALS: BP 127/74; PULSE 68; RESP 17; TEMP 36.1; O2SAT 98
[2022-05-06] MEDS: DOCUSATE 100 MG CAPSULE PO (08:23)
[2022-05-06] MEDS: ASPIRIN EC 81 MG TABLET PO (08:23)
[2022-05-06] MEDS: VENLAFAXINE 37.5 MG TABLET 75 MG PO (08:24)
[2022-05-06] MEDS: HYDROMORPHONE 2 MG TABLET PO (08:24)
--- NOTE | 2022-05-06 08:30 | PM.DS.1 ---
History of Present Illness History of Present Illness Date Patient Seen: 05/06/22 Time Patient Seen: 08:30 Chief complaint: Knee pain Narrative: Patient states her right knee is mildly painful this morning. Denies fever or chills. No nausea or vomiting. She is otherwise without complaints. Discharge Providers Provider Date of admission: 05/05/22 06:03 Discharge Date: 05/06/22 Primary care physician: Juvenal Harris DO Consults: 05/04/22 13:56 Consult to Anesthesiology Routine Comment: Consulting Provider: Anesthesiologist Reason for consultation: Regional block for post operative pain control 05/05/22 11:12 Consult to Discharge Planning Routine Comment: Consult to Physical Therapy Evaluate & Treat Comment: Physician Instructions: postop TKA protocol Consult to Respiratory Therapy Evaluate & Treat Comment: Physician Instructions: Evaluate and treat Discharge provider: Ranjith Hamm PA-C Summary Hospital Course Discharge Diagnosis: History of right total knee arthroplasty with recurrent effusions and instability Hospital Course: Revision right total knee arthroplasty with revision of polyethylene component Same procedure as scheduled: Yes Indications: The patient has had progressively worsening right knee pain with persistent pain and instability after a right total knee arthroplasty. Non-operative management has failed and the patient has requested revision total knee replacement. The risks, benefits and alternatives to surgery were discussed with the patient prior to proceeding. Risks discussed included, but were not limited to, failure to relieve pain, stiffness, infection, nerve damage, deep venous thrombosis, pulmonary embolism, stroke, coma, heart attack, permanent paralysis and , as well as the potential need for eventual rerevision of the prosthetic.? We also discussed that this may represent an undergraduate going low-grade infection which we have not been able to demonstrate.? This would subsequently require additional rerevision surgeries. Surgeon: Sunshine Dykes Litigation Services Manager: Nancy Brody Anesthesia Type: General and Spinal Operative Notes Findings: Brxi-nk-yplhauyx synovitis, some laxity the laxity throughout range of motion, improved with a change to a 10 poly, some evidence of osteolysis on the medial aspect of the tibia, no evidence of gross tibia, femoral or patella loosening Closure Type: primary Specimen(s): other (Multiple cultures, PCR) Prosthetic devices, grafts, tissues, transplants, or devices: Size 10 Journey BCS 2 size 6 polyethylene Estimated Blood Loss (mL): 100 Blood products transfused: none Tourniquet time (min): 70 Patient admitted to the hospital for revision right total knee arthroplasty with revision of polyethylene component. Patient consented to the same. Patient underwent polyethylene exchange on May 05, 2022. Patient back in her room recovering well as in stable condition. Mobilize with physical therapy, weight-bearing as tolerated. Multimodal pain management. Cultures pending. Patient will be discharged home on Keflex 500 mg t.i.d.. Follow-up in clinic, [facility] 1 week. Exam Vital Signs (past 8 hours): - 05/06/22 01:00 05/06/22 05:00 Temperature 98.3 F 97.7 F Pulse Rate 70 65 Respiratory Rate 14 14 Blood Pressure 148/98 H 133/78 Pulse Oximetry 97 98 Oxygen Flow Rate 0 0 Oxygen Delivery Method Room Air Oxygen Flow Rate 0 Narrative Exam Narrative: 57-year-old female sitting up in bed having breakfast in no apparent distress. Dressing is Clean, dry, intact.. Motor functions intact distal bilateral lower extremities. Sensation grossly intact to light touch. Const General: cooperative, healthy appearing and comfortable Objective Labs Result Diagrams: 05/06/22 05:00 Labs: Laboratory Results - last 24 hr 05/05/22 05/06/22 09:01 05:00 Hgb 11.9 L Hct 36.1 Fluid Color Pulpotio Bareas Fluid Appearance Cloudy Fluid RBC 7466 Fld Tot Nucleated Cell 1630 Fluid Polynuclear WBCs 21 Fluid Mononuclear WBCs 79 Fluid Eosinophils 0 Fluid Other Cells 0 Body Fluid Clot No clots present PFSH Medical History Anesthesia COVID-19 virus infection (03/06/22) Depression Nerve damage Thyroid disease Surgical History History of arthroplasty of right knee (02/04/21) History of History of hysterectomy Hx of bariatric surgery (09/2020) Hx of bilateral breast reduction surgery Social History household members: children Smoking Status: Never smoker alcohol intake: current Discharge Assessment & Plan Assessment and Plan Assessment: Patient progressing as expected status post revision right total knee arthroplasty with revision of polyethylene component Plan of Treatment: Mobilize with physical therapy, weight-bearing as tolerated Multimodal pain management Keflex 500 mg t.i.d. Follow-up [facility] in 1 week. Discharge home today after physical therapy if safe for home environment. Discharge Plan Discharge Plan Patient Disposition: Home Discharge orders & Medications Prescriptions: New acetaminophen 325 mg Tablet 650 mg PO Q6HR Qty: 60 0RF polyethylene glycol 3350 17 gram Powder In Packet 17 gm PO DAILY PRN (Reason: Constipation) Qty: 20 0RF aspirin 81 mg Tablet,Delayed Release (Dr/Ec) 81 mg PO BID Qty: 60 0RF ibuprofen 400 mg Tablet 400 mg PO Q4HR Qty: 60 0RF oxycodone 5 mg Tablet 5 mg PO Q3HR PRN (Reason: Pain, Moderate (4-6)) Qty: 40 0RF cephalexin 500 mg capsule 500 mg PO Q8H Qty: 90 1RF Continued venlafaxine 75 mg capsule,extended release 24hr 150 mg PO DAILY venlafaxine 75 mg PO DIRECTED Rx Instructions: 75mg with supper in addition to 150mg daily in am Follow up/Referrals: Ranjith Hamm PA-C [[facility] [employer] [employer]] - (One week) Juvenal Harris DO [Primary Care Provider] - Sunshine Dykes MD [Physician] - As previously scheduled (Follow up w/ Ranjith Hamm PA-C, on 05/21/2022 @ 10:50 am at [facility] in [place].) Diet/Activity/Treatments Diet: Diet as Tolerated Activity: Walk frequently! Weight bearing as tolerated to right leg. Cold/Heat Therapy: Ice to knee as needed for pain. Skin/Wound/Dressing Care Report to your healthcare provider any signs of infection, such as:: chills, fever, night sweats, unusual drainage and unusual redness Dressing: May shower. Leave Aquacel dressing in place until follow up appointment in office. No bathing or otherwise soaking incision. Call office if dressing becomes saturated inside. Visit Report/Discharge Packet Instructions: DI for Heart Failure, DI for Knee Replacement, DI for Prescription Opioid Use Stand Alone Forms: Surgery Discharge Discharge Data Primary Care Provider: Juvenal Harris
--- NOTE | 2022-05-06 09:11 | PT.IPTN ---
Current Diagnoses Effusion, right knee (05/05/22) Presence of right artificial knee joint (05/05/22) Surgery Performed Operation Date: 05/05/22 07:45 Actual Procedures p Total Knee Arthroplasty Revision(Right) - Sunshine Dykes MD Physical Therapy Treatment Note M2 PT-IP Current Condition Start: 05/05/22 14:59 Freq: NEEDED Status: Active Protocol: Document 05/05/22 14:25 AB (Rec: 05/05/22 15:44 AB [id number]) Physical Therapy Current Condition Current Condition Evaluation Date 05/05/22 Treatment Diagnosis s/p R TKA revision; difficulty in walking Onset Date 05/05/22 M3 PT-IP Subjective Start: 05/05/22 14:59 Freq: NEEDED Status: Active Protocol: Document 05/06/22 08:58 KS (Rec: 05/06/22 11:03 KS [id number]) Subjective Physical Therapy Visit Type Type Treatment Note Visit Start Time 08:58 Visit Stop Time 09:11 Total Visit Minutes 13 Number of SAMPLE SELECTOR Visits 1 Physical Therapy Visit Comments Patient Comments agreeable to do PT, caregiver present M4 PT-IP Mobility and Gait Start: 05/05/22 14:59 Freq: NEEDED Status: Active Protocol: Document 05/06/22 08:58 KS (Rec: 05/06/22 11:03 KS [id number]) PT-Bed Mobility Assessment Supine to Sit Supine to Sit Independent Sit to Supine Sit to Supine Independent Scooting Scooting to Edge of Bed Independent PT-Transfer Assessment Sit to and From Stand Sit to and from Stand Independent Equipment Transfer Assistive Device Gait Belt,Front Wheeled Walker Orthotic/Prosthetic Devices or Brace: No Transfers Transfer Destination Bed Transfer Technique ambulated w/ FWW Transfer Ability Level of Assist Independent,Standby Assistance ,1 Person Assistance Comments Mobility Comments Pt in bed upon arrival and upon my entering she sup<>sit< >stand independenetly w/o AD. Pt then used FWW and ambulated ~150 ft to practice stairs SBA and ascended/descended 3 steps w/ step to pattern and SPC SBA and ambulated full distance back to her room and returned to bed. Pt states she has no further needs and feels ready to go home. Gait Assessment Gait Gait Assistance Required: Standby Assistance Distance (Feet) 300 Able to Maintain Weight Bearing Status Yes During Gait Assistive Devices Assistive Device Gait Belt,Front Wheeled Walker Orthotic/Prosthetic Devices or Brace: No Gait Deviations General Gait Pattern Antalgic,Decreased Stride Length,Narrow Based Gait Factors Limiting Gait Function Factors Limiting Gait Function Pain,Poor Safety Awareness Comments Gait Comments Pt ambulated very quickly w/ FWW w/ cues to slow down d/t slightly impulsive. Stair Climbing Assessment Evaluation Level of Assist On Stairs Standby Assistance,1 Person Assistance Devices Stair Climbing Assistive Devices Straight Cane Technique/Endurance Stair Climbing Direction Ascend and Descend Stair Climbing Technique Step to Step Number of Steps Climbed 3 Stair Climbing Set # Repetitions (reps) 1 Comments Stair Climbing Comments Able to ascend/descend 3 steps w/ SPC SBA w/ cues for sequencing. Pt feels safe to complete at home. PT-Balance Assessment Sitting Balance and Reactions Static Sitting Balance Ability Normal Dynamic Sitting Balance Ability Normal Standing Balance and Reactions Static Standing Balance Ability Good Dynamic Standing Balance Ability Good Device Used FWW M5 PT-IP Objective Assessments Start: 05/05/22 14:59 Freq: NEEDED Status: Active Protocol: Document 05/05/22 14:25 AB (Rec: 05/05/22 15:44 AB [id number]) Orientation Orientation/Cognition Level of Alertness Alert Orientation Name,Place,Situation Safety Awareness Decreased Safety Awareness Memory Description No Deficits Noted Gross Range of Motion Lower Extremity ROM Impairments R knee flexion: 70 deg R knee extension: ~ 15 deg less to 0 Strength Lower Extremity Strength Assessment Right Impaired Hip 4-/5 Knee 4-/5 Coordination Assessment Gross Coordination Gross Coordination WNL Sensation Assessment Sensation Gross Sensation Right LE Impaired Sensation Description Numbness Comments Sensation Comments slight numbness on RLE Muscle Tone Muscle Tone WNL Yes M6 PT-IP Treatment Start: 05/05/22 14:59 Freq: NEEDED Status: Active Protocol: Document 05/06/22 08:58 KS (Rec: 05/06/22 11:03 KS [id number]) Physical Therapy Treatment Education Education Provided Precautions,Weight Bearing Status,Post-Op Packet,Safety Other Treatments Other Treatment Performed caregiver training M7 PT-IP Assessment and Plan Start: 05/05/22 14:59 Freq: NEEDED Status: Active Protocol: Document 05/06/22 08:58 KS (Rec: 05/06/22 11:03 KS [id number]) PT Summary Assessment and Plan Potential Rehabilitation Potential Excellent Summary Impairments Pain,ROM,Strength,Balance, Coordination,Sensation,Tone, Cognition,Bed Mobility, Transfers,Gait,Activity Tolerance Progress Towards Goals Progressing Toward Goals Assessment Summary Pt able to move independently to SBA for all mobility including ambulation and stair training. Her caregiver will be present to assist her as needed. She is slightly impulsive, but had no LOB and ambulated 300 ft and completed 3 steps. Pt feels eager and safe to d/c home. She agrees to use FWW at home. She will benefit from OPPT to improve stability, strength, and ROM. Goals Bed Mobility Goal Independent Transfer Goal Independent,Front Wheeled Walker Gait Goal Independent,Front Wheel Walker Gait Distance 200 Other Goals up/down 3 steps using crutches SBA Days to Meet Goals 5 Frequency of Treatment Frequency Of Treatment Twice a Day Treatment Plan Physical Therapy Treatment Plan Bed Mobility Training,Transfer Training,Gait Training, Therapeutic Exercise,Balance Retraining,Post Op Education, Discharge Planning,Hot or Cold Pack,Neuromuscular Re-ed, Coordination Retraining,Manual Therapy Weight Bearing Status Weight Bearing Status Weight Bear as Tolerated Allowed Weight Bearing Amount (enter % RLE WBAT or #) (%) Recommendations To Nursing Amount of Assist Needed 1 Person Assist Discharge Recommendations PT Discharge Recommendations Home with Assistance, Outpatient PT Transportation Needs at Discharge Private Vehicle
[2022-05-06] MEDS: HYDROMORPHONE 4 MG TABLET PO (10:41)
[2022-05-06 11:55] VITALS: BP 150/98; PULSE 75; RESP 18; TEMP 36.5; O2SAT 96
--- NOTE | 2022-05-06 11:56 | CM.DANOTE ---
DCP: Case received, EMR reviewed and met with patient. Introduced self and role. Was able to obtain information regarding patient's baseline activity status at home prior to surgery. DCP assessment completed with information currently available. Patient is a 57 year old female who admitted yesterday morning to the care of the orthopedic team. PCP: Dr. Harris ([facility]). Payer: confirmed: [employer]. Patient came to the hospital for a surgical procedure. Patient had right total knee arthroplasty with revision of polythylene component. According t notes, patent had progressively had worsening of right knee pain and instability after a right total knee arthroplasty. Met with patient in her room. She is pleasant, alert and oriented. She was laying in her bed applying ice to her extremity. Confirmed with patient that she resides in [place] with her children, the oldest 21, who will be assisting patient at home. At her baseline, she is independent, did have crutches at home prior to her last surgery. 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 She gets her primary care at the [facility], but stated, there is a big turn over in providers, since they frequently deploy. Confirmed that she does have family support at home upon discharge. P: Patient is to be discharged home today after clearing with P.T. 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 No History Provided By Patient,Medical Record Prior Living Arrangements House Household Members children Type of transporation used prior to Drives own vehicle admit Independent with ADL's Yes Is patient alert and oriented? 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 # of Electric Motor Tester Assembler Review Status In Process Next Review Type Continued Stay Review Pre-Anesthesia Assessment Start: 03/18/22 12:30 Freq: Status: Active Protocol: Document 03/18/22 12:30 CAB (Rec: 03/18/22 13:38 [facility] [id number]) Pre-Anesthesia Assessment Patient Information Reviewed Via Phone Assessment Assessment Completed With Patient Comment Labs done per pt, not here, COVID screen @ [facility] 03/21/22 Primary Care Provider Seen Specialist in Last 12 Months Yes Specialist Seen Orthopedist Primary Language Indonesian Preferred Language Indonesian Culvert Installer Required No Height 6 ft 1 in Weight 250 lb Body Mass Index (BMI) 33.0 Hearing Ability Normal Visual Assist Contacts,Glasses Dentition Type Teeth, Natural Present Barriers to Learning None Hx Anesthesia Reactions No Hx Family Anesthesia Reaction No Hx Malignant Hyperthermia No Hx Blood Transfusions No Anesthesia Review Requested No 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 No Does patient have GOMEZ/SOB No Hx Sleep Apnea No CPAP/BIPAP use not prescribed Currently Taking a Beta Patrice No Hx Chest Pain No Hx SOB No Hx Syncope or Dizziness No Anti-Coagulant Therapy No Has a Group Leader [employer] Testing No Cardiac Testing No Hx Pacemaker/ICD No Pacemaker Rep Required? No Cardiac Clearance Received Not Applicable Diet Type At Home Regular dysphagia No Urinary Catheter Present No Hx Urinary Self Catheterization No Diabetes No Patient No Lactating No Hx Drug Resistant Organism No Presence of External or Internal Medical Yes: Gastric sleeve, right Devices knee prosthesis Have you had any close contact with Yes: Pt had Covid 03/06/22, someone diagnosed with COVID-19? minimal symptoms, no hospitalizations Received a COVID vaccine? Yes Received all doses? Yes Marital Status - lives in a different state Lives With children Prior Living Arrangements House Number of Floors (Floors) Two Floors Patient Discharge Plan Description Return Home Comment Pt advised overnight length of stay per surgeon office Feels Safe in Current Environment Yes Been Physically Hurt or Threatened By a No Person in Current Environment Do you have thoughts of harming yourself None or others? Are you currently considering suicide? No Do you have a plan to hurt yourself or No Plan others? Do You Have Any Spiritual Beliefs That No May Affect Your HC Choices? Do You Have Any Cultural Practices That No May Affect Your HC Choices? Comment Confucianist Who Can We Speak to About Patient's Care Family, friends Identifying Code for Release of Patient Declines to issue Information Health Care Proxy/Next of Kin Arleen (daughter) Health Care Proxy Emergency Contact Name Sven (son) Emergency Contact Advance Directives? No Power of Manager Call Center No PAC Instructions Do not shave/clip surgical site,Durable medical equipment ,Medications to take/avoid, Nasal antibiotic,No ETOH/ petroleum product on skin DOS, NPO,Post-op transportation, Sensory aids,Sturdy shoes/ comfortable clothes,Do not bring valuables and remove jewelry
--- NOTE | 2022-05-06 12:54 | PC.NURSE ---
Right knee swelling, hot, bruising/redness. Patient concerned d/t fluid issues and no drain after this procedure, notified Dr Dykes who is sending her PA to assess.
--- NOTE | 2022-05-06 14:09 | PC.NURSE ---
PA came by and patient satisfied with care, discharged home.
[2022-05-14 08:14] LABS: Bacteria Det by PCR Univ WA SEE SEPERATE REPORT
[2022-05-14 08:14] LABS: Bacteria Det by PCR Univ WA SEE SEPERATE REPORT
== END 2022-05-06 14:05 | disposition home or self-care (01) | DRG 487 ==
PROVIDERS: Admitting Provider Orthopaedic Surgery; PCP Orthopaedic Surgery; Referring Provider Orthopaedic Surgery; Visit Provider Orthopaedic Surgery
PROC: 0SPC09Z Removal of Liner from Right Knee Joint, Open Approach (ICD-10-PCS; principal; 2022-05-05 07:45)
DX: T84.53XA Infection and inflammatory reaction due to internal right knee prosthesis, initial encounter (principal); B96.89 Other specified bacterial agents as the cause of diseases classified elsewhere; M65.861 Other synovitis and tenosynovitis, right lower leg; M25.361 Other instability, right knee; F32.A Depression, unspecified; Z20.822 Contact with and (suspected) exposure to COVID-19; Z96.651 Presence of right artificial knee joint
CPT/HCPCS: 36415; 73560; 85014; 85018; 87070; 87075; 87176; 87205; 87801; 89051; 97116; 97161; C1776; C9290; J0171; J0360; J0690; J1100; J1200; J2250; J2274; J2405; J2704; J3010

== ENCOUNTER 2022-06-29 17:04 | Emergency (ER) | payer OTHER, SELFPAY ==
[2022-05-05 06:48] VITALS: BMI 33.0
[2022-06-29 17:51] VITALS: BP 174/81; PULSE 80; RESP 17; TEMP 36.6; O2SAT 99; BMI 34.2
--- NOTE | 2022-06-29 22:37 | ED.BACK ---
HPI - Back Pain/Injury General Chief Complaint: Back Pain/Injury Stated Complaint: Yesterday pulled something in back Time Seen by Provider: 06/29/22 22:34 Source: patient History of Present Illness HPI Narrative: Patient left prior to my evaluation and was not seen in the emergency department. She voluntarily left without being seen Related Data Home Medications Medication Instructions Recorded Confirmed venlafaxine 75 mg capsule,extended 150 mg PO TID 02/03/21 06/29/22 release 24 hr gabapentin 800 mg tablet 800 mg PO Q6HR 06/29/22 06/29/22 hydromorphone 2 mg tablet 8 mg 06/29/22 levothyroxine 200 mcg tablet 200 mcg PO DAILY 06/29/22 06/29/22 Allergies Allergy/AdvReac Type Severity Reaction Status Date / Time hyaluronidase AdvReac Severe Eye socket Verified 06/29/22 17:56 topiramate AdvReac Severe Eye socket Verified 06/29/22 17:56 pain Patient History Medical History Anesthesia COVID-19 virus infection (03/06/22) Depression Nerve damage Thyroid disease Surgical History History of arthroplasty of right knee (02/04/21) History of History of hysterectomy Hx of bariatric surgery (09/2020) Hx of bilateral breast reduction surgery Social History household members: children Smoking Status: Never smoker alcohol intake: current Smoking Status: Never smoker alcohol intake frequency: holidays/special occasions only Substance Use Type: does not use Exam Initial Vital Signs Initial Vital Signs: Vital Signs Temperature 98 F 06/29/22 17:51 Pulse Rate 80 06/29/22 17:51 Respiratory Rate 17 06/29/22 17:51 Blood Pressure 174/81 H 06/29/22 17:51 Pulse Oximetry 99 06/29/22 17:51 Oxygen Delivery Method 06/29/22 17:51 Course Vital Signs Vital signs: Vital Signs - 8 hr 06/29/22 17:51 Temperature 98 F Pulse Rate 80 Respiratory Rate 17 Blood Pressure 174/81 H Pulse Oximetry 99 Oxygen Delivery Method Room Air Discharge Plan Departure Patient Disposition: Left Without Being Seen Clinical Impression: Patient left before evaluation by physician
== END 2022-06-29 22:42 | disposition left against medical advice (07) ==
PROVIDERS: Emergency Provider Emergency Medicine; PCP Orthopaedic Surgery
CPT/HCPCS: 99281

== ENCOUNTER → 2023-04-11 13:52 | Outpatient (CLI) | payer OTHER, SELFPAY ==
[2022-05-05 06:48] VITALS: BMI 33.0
--- NOTE | 2023-04-11 | DI.MRI.S_ITS ---
PROCEDURE: MR HEAD/BRAIN WO/W CON INDICATIONS: Dizziness and giddiness TECHNIQUE: Noncontrast axial T1 spin echo, axial T2 fast spin echo, sagittal and axial FLAIR, coronal T2 fast spin echo, axial gradient echo, axial diffusion and ADC through the brain. After the administration of contrast, axial and coronal and sagittal T1 spin echo with fat saturation through the brain. COMPARISON: None. FINDINGS: Image quality: Excellent. CSF spaces: Basal cisterns are patent. No extra-axial fluid collections. Ventricles are normal in size and shape. Brain: No midline shift. No intracranial bleeds or masses. No abnormal intracranial enhancement. There is cerebral volume loss for age. There is periventricular white matter chronic small vessel ischemic change. The brainstem appears normal. Diffusion-weighted images demonstrate no acute ischemic insults. No chronic ischemic insults. Normal intravascular flow voids are present. Skull and face: Calvarial marrow is normal in signal. Orbits appear normal. Sinuses: Mild maxillary sinus mucosal thickening. The mastoids appear clear. IMPRESSION: 1. No cause for patient's symptoms is identified. 2. Mild global volume loss and chronic microvascular ischemic change. 3. No acute intracranial abnormalities. No intracranial enhancement. Dictated by: Reji Franco M.D. on 04/12/2023 at 8:54 Approved by: Reji Franco M.D. on 04/12/2023 at 9:01
== END ==
PROVIDERS: PCP Orthopaedic Surgery; Referring Provider Physician Assistant; Visit Provider Physician Assistant
DX: R42 Dizziness and giddiness (principal)
CPT/HCPCS: 70553; A9579

== ENCOUNTER 2024-09-10 19:54 | Emergency (ER) | payer OTHER, SELFPAY ==
[2022-05-05 06:48] VITALS: BMI 33.0
[2024-09-10] VITALS (19 sets, daily range): BP systolic 160–185; BP diastolic 73–107; PULSE 110–120; RESP 17–95; TEMP 37.1–37.5; O2SAT 95–100; BMI 33.0
--- NOTE | 2024-09-10 20:01 | DI.RAD.S_ITS ---
PROCEDURE: XR WRIST LT MIN 3V INDICATIONS: deformity; fall TECHNIQUE: 3 views of the wrist were acquired. COMPARISON: None. FINDINGS: Bones: There is a comminuted dorsally angulated intra-articular fracture of the distal radius. Displaced ulna styloid fracture is also present. Soft tissues: No suspicious soft tissue calcifications. IMPRESSION: Comminuted intra-articular distal radial fracture with angulation. Displaced ulna styloid fracture. Dictated by: Sherry Medina M.D. on 09/10/2024 at 20:33 Approved by: Sherry Medina M.D. on 09/10/2024 at 20:33
[2024-09-10] MEDS: HYDROMORPHONE 1 MG INJ IV ×2 (20:07→21:09)
--- NOTE | 2024-09-10 22:23 | ED.TRAUMA ---
HPI - Trauma General Chief Complaint: Extremity Injury, Upper Stated Complaint: L wrist deformity- roller skating Time Seen by Provider: 09/10/24 22:17 Source: patient and EMS Mode of arrival: EMS History of Present Illness HPI narrative: Patient 59-year-old female presents today with left upper extremity injury. Reports that she was roller-skating when she fell. Landed on her tailbone and her wrist. Obvious deformity decreased range of movement in her fingers. Did not hit her head or lose consciousness no neck pain numbness tingling or weakness. Right-hand dominant Related Data Home Medications Medication Instructions Recorded Confirmed venlafaxine 75 mg capsule,extended 150 mg PO TID 02/03/21 06/29/22 release 24 hr gabapentin 800 mg tablet 800 mg PO Q6HR 06/29/22 06/29/22 hydromorphone 2 mg tablet 8 mg 06/29/22 levothyroxine 200 mcg tablet 200 mcg PO DAILY 06/29/22 06/29/22 Previous Rx's Medication Instructions Recorded hydrocodone 5 mg-acetaminophen 325 1 tab PO Q6H PRN pain #14 tabs 09/10/24 mg tablet Allergies Allergy/AdvReac Type Severity Reaction Status Date / Time hyaluronidase AdvReac Severe Eye socket Verified 09/10/24 19:54 topiramate AdvReac Severe Eye socket Verified 09/10/24 19:54 pain Patient History Medical History Anesthesia COVID-19 virus infection (03/06/22) Nerve damage Thyroid disease Depression Surgical History Hx of bariatric surgery (09/2020) History of History of hysterectomy Hx of bilateral breast reduction surgery History of arthroplasty of right knee (02/04/21) Social History household members: children Smoking Status: Never smoker alcohol intake: current Smoking Status: Never smoker alcohol intake frequency: holidays/special occasions only Exam Initial Vital Signs Initial Vital Signs: Vital Signs Temperature 98.7 F 09/10/24 19:54 Pulse Rate 113 H 09/10/24 19:54 Respiratory Rate 24 09/10/24 19:54 Blood Pressure 172/86 H 09/10/24 19:54 Pulse Oximetry 100 09/10/24 19:54 Oxygen Delivery Method Room Air 09/10/24 19:54 GENERAL: Alert 59-year-old female and in [no acute] distress. HEENT: Head atraumatic,EOMI, pupils reactive, face symmetric, [moist] mucous membranes NECK: No vertebral tenderness no step-off CARDIOVASCULAR: Regular rate and rhythm without murmurs, rubs or gallops. RESPIRATORY: Breath sounds equal bilaterally, no wheezes rales or rhonchi. ABDOMEN: Soft, nontender. Normoactive bowel sounds all 4 quadrants. No guarding or rebound. EXTREMITIES: Normal range of motion, no clubbing or edema. Neurovascularly intact Left upper extremity obvious distal radial fracture distal radial pulse intact elbow nontender no clavicle pain or shoulder abnormality NEUROLOGICAL: Alert and oriented x4.Normal gait and speech. Cranial nerves II through XII grossly intact. SKIN: Warm, dry, no laceration, no petechiae, no rashes or lesions. Procedures Orthopedic Fracture Reduction Fracture #1: Side: left Fracture Reduction Location: radius and ulna Analgesia: procedural sedation Technique: direct manipulation and traction/counter-traction Post Reduction X-rays Demonstrate: acceptable reduction Post-reduction neuro exam: intact and no change Post-reduction vascular exam: intact and no change Splint Applied: Yes Patient Tolerated Procedure: Well Orthopedic Splinting/Casting Injury #1: Upper Extremity Injury Location: wrist Upper Extremity Immobilizer: sling/shoulder immobilizer and sugar tong splint Post splinting neuro exam: intact and no change Post splinting vascular exam: intact Procedural Sedation Consent signed: Yes Indication: fracture/dislocation reduction ASA Class: II Mallampati Airway Classification: Class II IV Propofol dose (mg): 100 Intraservice time/total sedation time (min): 11 ED Sedation Level: Moderate (Concious) Patient Tolerated Procedure: No complications Course Orders Ordered: ED Orders 09/10/24 22:58 XR wrist LT min 3V Stat Discontinued Medications Hydrocodone Bitart/Acetaminophen (Hydrocodone/Acet 5/325 Prepack) 1 bottle MISC DIRECTED ONE Stop: 09/10/24 23:00 Last Admin: 09/10/24 23:08 Dose: 1 bottle Documented By: JULES Hydromorphone HCl (Hydromorphone 1 Mg Inj) 1 mg IV NOW ONE Stop: 09/10/24 20:05 Last Admin: 12/22/24 20:07 Dose: 1 mg Documented By: JULES Hydromorphone HCl (Hydromorphone 1 Mg Inj) 1 mg IV NOW ONE Stop: 09/10/24 21:07 Last Admin: 09/10/24 21:09 Dose: 1 mg Documented By: JULES Ketorolac Tromethamine (Ketorolac 30 Mg/Ml Vial) 15 mg IV NOW ONE Stop: 09/10/24 22:24 Last Admin: 09/10/24 22:32 Dose: 15 mg Documented By: JULES Propofol (Propofol 200 Mg/20 Ml Vial) 115 mg 1 mg/kg (115 mg) IV NOW ONE Stop: 09/10/24 22:18 Last Admin: 09/10/24 22:46 Dose: 100 mg Documented By: JULES Vital Signs Vital signs: Vital Signs - 8 hr 09/10/24 21:30 09/10/24 22:48 09/10/24 22:48 Temperature Pulse Rate 120 H 116 H Respiratory Rate 20 24 Blood Pressure 166/78 H Pulse Oximetry 95 96 Oxygen Flow Rate 09/10/24 22:49 09/10/24 22:50 09/10/24 22:50 Temperature Pulse Rate 118 H 118 H Respiratory Rate 29 H 20 Blood Pressure 160/73 H 160/73 H Pulse Oximetry 98 98 Oxygen Flow Rate 0 09/10/24 22:50 09/10/24 22:52 09/10/24 22:52 Temperature Pulse Rate 118 H 114 H Respiratory Rate 29 H 18 Blood Pressure 160/73 H 161/73 H Pulse Oximetry 98 97 Oxygen Flow Rate 0 09/10/24 22:55 09/10/24 22:56 09/10/24 22:56 Temperature Pulse Rate 117 H 119 H Respiratory Rate 23 20 Blood Pressure 185/107 H 185/107 H Pulse Oximetry 96 96 Oxygen Flow Rate 0 09/10/24 23:00 09/10/24 23:00 09/10/24 23:01 Temperature Pulse Rate 116 H 115 H Respiratory Rate 24 28 H Blood Pressure 184/84 H 184/84 H Pulse Oximetry 95 95 Oxygen Flow Rate 0 09/10/24 23:01 09/10/24 23:05 09/10/24 23:05 Temperature Pulse Rate 114 H 114 H 110 H Respiratory Rate 18 17 20 Blood Pressure 178/77 H Pulse Oximetry 95 95 Oxygen Flow Rate 0 09/10/24 23:10 09/10/24 23:15 09/10/24 23:20 Temperature Pulse Rate 114 H 114 H 112 H Respiratory Rate 20 20 95 H Blood Pressure 168/77 H 169/77 H 176/77 H Pulse Oximetry 95 96 95 Oxygen Flow Rate 0 0 0 09/10/24 23:24 Temperature 99.5 F Pulse Rate 113 H Respiratory Rate 20 Blood Pressure 176/77 H Pulse Oximetry 96 Oxygen Flow Rate 0 MDM - Trauma Lab Data Labs: Point of Care Testing Test Results Not applicable [facility] Narrative Medical decision making narrative: 59-year-old female presenting today with left wrist injury. She fell while roller-skating. No other injury. Definite pain while moving. X-ray confirms fracture. Procedure sedation with propofol. He is improved alignment on x-ray pain well controlled now. She reports that she has not really able to move her fingers although she has great sensation in all extremities checked both before and after splinting. Good cap refill Discharge Plan Departure Patient Disposition: Home Clinical Impression: Closed fracture of left wrist Instructions: DI for Distal Radius Fracture Activity Restrictions/Additional Instructions: *You have been diagnosed with left distal radius fracture *What to do: This will likely need surgery. He will need to call and follow-up with orthopedic. Recommend elevation and ice as often as possible. Keep splint on at all times. Recommend covering with bag for bathing *Continue to take medications as directed [place] 1 tablet every 6 hours if needed for severe pain *Follow up with your primary care provider in 2-3 days or call [phone] [facility] tomorrow to schedule follow up appointment evaluation *Return to ER if you should have increasing numbness, pain or any new, worsening or concerning symptoms CONTROLLED SUBSTANCE DISCHARGE (Narcotoic/benzodiazepine/Flexeril/Phenergan) 1. You have been prescribed narcotic medications, it does have acetaminophen/Tylenol/paracetamol in it, DO NOT TAKE MORE THAN 4,00mg in 24 hours of Tylenol. TRAMADOL DOES NOT CONTAIN TYLENOL 2. Please understand that we cannot provide further refills of narcotics, benzodiazepines or controlled substances through the ED and her pain management will need to be through your provider. 3. While on these medications you cannot drive or operate heavy machinery. 4. You cannot sign legal documents or perform any duties such as this. 5. As long as you're taking opiate pain medications he should also be taking a stool softener such as Colace, Dulcolax, MiraLAX or prune juice, to help avoid constipation. Prescriptions: New hydrocodone-acetaminophen 5-325 mg tablet 1 tab PO Q6H PRN (Reason: pain) Qty: 14 0RF No Action venlafaxine 75 mg capsule,extended release 24hr 150 mg PO TID hydromorphone 2 mg tablet 8 mg Patient Comments: TAKE 1 TABLET BY MOUTH EVERY 4 TO 8 HOURS NEEDED gabapentin 800 mg tablet 800 mg PO Q6HR levothyroxine 200 mcg tablet 200 mcg PO DAILY Referrals: [facility] [Provider Group] Juvenal Harris DO [Primary Care Provider] - Stand Alone Forms: Patient Portal/API/Survey
[2024-09-10] MEDS: KETOROLAC 30 MG/ML VIAL 15 MG IV (22:32)
[2024-09-10] MEDS: propofoL 200 MG/20 ML VIAL 115 MG IV (22:46)
--- NOTE | 2024-09-10 22:58 | DI.RAD.S_ITS ---
PROCEDURE: XR WRIST LT MIN 3V INDICATIONS: reduction TECHNIQUE: 3 views of the wrist were acquired. COMPARISON: [facility], , XR WRIST LT MIN 3V, 09/10/2024, 20:00. FINDINGS: Bones: Interval reduction comminuted, intra-articular distal radial fracture. There is improved anatomic alignment. Ulna styloid fracture. Soft tissues: No suspicious soft tissue calcifications. IMPRESSION: Improved alignment of previous angulated distal radial fracture. Dictated by: Sherry Medina M.D. on 09/10/2024 at 23:16 Approved by: Sherry Medina M.D. on 09/10/2024 at 23:17
[2024-09-10] MEDS: HYDROCODONE/ACET 5/325 PREPACK 1 BOTTLE MISC (23:08)
--- NOTE | 2024-09-11 00:08 | PC.NURSE ---
Good cap refill and appropriately placed splint. Verified with MD Hernandez.
== END 2024-09-10 23:43 | disposition home or self-care (01) ==
PROVIDERS: Emergency Provider Emergency Medicine; PCP Orthopaedic Surgery
DX: S52.572A Other intraarticular fracture of lower end of left radius, initial encounter for closed fracture (principal); S52.612A Displaced fracture of left ulna styloid process, initial encounter for closed fracture; W18.30XA Fall on same level, unspecified, initial encounter; Y93.51 Activity, roller skating (inline) and skateboarding
CPT/HCPCS: 25605; 73110; 96374; 96375; 96376; 99152; 99284; J1171; J1885; J2704

== ENCOUNTER → 2024-09-21 13:10 | Outpatient (CLI) | payer OTHER, SELFPAY ==
[2022-05-05 06:48] VITALS: BMI 33.0
--- NOTE | 2024-09-21 13:12 | DI.CT.S_ITS ---
PROCEDURE: CT UE LT WO CON INDICATIONS: Closed fracture of both wrists TECHNIQUE: Noncontrast 1 mm axial sections acquired through the carpal bones, with coronal and sagittal reformats. For radiation dose reduction, the following was used: automated exposure control, adjustment of mA and/or kV according to patient size. COMPARISON: [facility], CR, XR WRIST LT MIN 3V, 09/10/2024, 22:55. [facility], CR, XR WRIST LT MIN 3V, 09/10/2024, 20:00. [facility] [place], CR, XR WRIST 3+ VIEWS BILATERAL, 09/14/2024, 13:57. FINDINGS: Image quality: Excellent. Bones: Comminuted intra-articular fracture of the distal radius again seen. Fracture is mildly impacted with up to 6 mm volar and 5 mm radial displacement with mild dorsal tilting of the distal radial articular surface. There is 1-2 mm gap along the radiocarpal articular surface. Fracture line also extends into the distal radioulnar joint. Osseous alignment does not appear significantly changed when compared to most recent radiographs. Small mildly displaced ulnar styloid fracture again noted. Moderate degenerative changes at the 1st carpometacarpal joint. Small ossification adjacent to the 1st carpometacarpal joint likely degenerative in nature. Soft tissues: Small joint effusions. The articular cartilages, ligaments, tendons are not well evaluated with CT. No obvious tendon entrapment is seen. The visualized musculature is normal in bulk. IMPRESSION: 1. Comminuted mildly displaced intra-articular fracture of the distal radius as described in the body of the report. There is dorsal tilting of the distal radial articular surface with minimal gap along the fracture line and no significant step-off at the radiocarpal articular surface. 2. Mildly displaced ulnar styloid fracture. 3. Moderate 1st carpometacarpal osteoarthrosis. Approved by: Nnamdi Jeter M.D. on 09/21/2024 at 20:50
--- NOTE | 2024-09-21 13:12 | DI.CT.S_ITS ---
PROCEDURE: CT UE RT WO CON INDICATIONS: Closed fracture of both wrists TECHNIQUE: Noncontrast 1 mm axial sections acquired through the carpal bones, with coronal and sagittal reformats. For radiation dose reduction, the following was used: automated exposure control, adjustment of mA and/or kV according to patient size. COMPARISON: [facility] [place], CR, XR WRIST 3+ VIEWS BILATERAL, 09/14/2024, 13:57. FINDINGS: Image quality: Excellent. Bones: No acute osseous fracture or dislocation. Moderate to severe degenerative changes at the 1st carpometacarpal joint with full-thickness joint space narrowing, subchondral sclerosis, subchondral cystic changes, marginal osteophyte formation. Luax-[id number] degenerative changes are seen throughout the remainder of the wrist. Soft tissues: Small joint effusions. The articular cartilages, ligaments, tendons are not well evaluated with CT. The visualized musculature is normal in bulk. IMPRESSION: 1. No acute osseous abnormality. Small joint effusion. 2. Moderate to severe 1st carpometacarpal osteoarthrosis. Approved by: Nnamdi Jeter M.D. on 09/21/2024 at 20:44
== END ==
LOC: CT 13:11
PROVIDERS: PCP Orthopaedic Surgery; Referring Provider Orthopaedic Surgery Adult Reconstructive Orthopaedic Surgery; Visit Provider Orthopaedic Surgery Adult Reconstructive Orthopaedic Surgery
DX: S52.572A Other intraarticular fracture of lower end of left radius, initial encounter for closed fracture (principal); S52.612A Displaced fracture of left ulna styloid process, initial encounter for closed fracture; S62.101A Fracture of unspecified carpal bone, right wrist, initial encounter for closed fracture; M18.0 Bilateral primary osteoarthritis of first carpometacarpal joints; M25.432 Effusion, left wrist; M25.431 Effusion, right wrist; X58.XXXA Exposure to other specified factors, initial encounter
CPT/HCPCS: 73200